=== PATIENT | male | born 1945 | race Caucasian/White ===

== ENCOUNTER 2019-02-02 14:08 | Inpatient (IN) | payer MEDICARE, OTHER ==
[~2019-02-02] VITALS: Ht 185.4 cm; Wt 81.0 kg
[2019-02-02] MEDS ORDERED: ISOS60TA36 PO (14:55)
[2019-02-02] MEDS ORDERED: LOSA25TA25 PO (14:55)
[2019-02-02] MEDS ORDERED: METO5TAB2 PO (14:55)
[2019-02-02] MEDS ORDERED: OMEP40CA6 PO (14:55)
[2019-02-02] MEDS ORDERED: INSU500V SQ (14:55)
[2019-02-02] MEDS ORDERED: ONDA4TAB13 SL (14:55)
--- NOTE | 2019-02-02 15:35 | NUR ---
pt in hospital gown, family at bedside. pt placed on monitors. pt able to use urinal to void. bilat bedrails up.
[2019-02-02 16:02] LABS: ALBUMIN 3.3 g/dL (3.4-5.0); ANION GAP 7 mmol/L (5-15); CALCIUM 8.3 mg/dL (8.5-10.1); CHLORIDE 122 mmol/L (98-107); CREATININE 4.21 mg/dL (0.7-1.3)
--- NOTE | 2019-02-02 16:40 | NUR ---
US BEING DONE AT BEDSIDE. PT HAS CALL LIGHT WITHIN REACH.
--- NOTE | 2019-02-02 17:02 | NUR ---
PT'S BLOOD SUGAR ON RECHECK 44, PT GIVEN FOOD AND JUICE. DR CUADRA NOTIFIED
[2019-02-02] MEDS ORDERED: DEXTROSE 50%, 50ML SYRINGE ONE (17:04)
--- NOTE | 2019-02-02 17:04 | NUR ---
REPORT TO RUDDY FLOYD
[2019-02-02] MEDS ORDERED: DEXTROSE 50%, 50ML SYRINGE IVPush ONE (17:30)
[2019-02-02] MEDS ORDERED: SODIUM BICARBONATE 8.4% 150 MEQ in DEXTROSE 5% 1,000 ML IV SCH (17:30)
--- NOTE | 2019-02-02 18:24 | NUR ---
PT MOVED FROM ROOM 28 TO 34. PT PLACED ON HOSPITAL BED
--- NOTE | 2019-02-02 18:25 | NUR ---
MIGUEL ÁNGEL HDZ (daughter) [phone]
[2019-02-02] MEDS ORDERED: SODIUM BICARBONATE 8.4% 100 MEQ in DEXTROSE 5% 1,000 ML IV SCH (18:30)
[2019-02-02] MEDS ORDERED: GABAPENTIN 300 MG CAPSULE PO PRN (18:30)
[2019-02-02] MEDS ORDERED: DEXTROSE 4 GM TAB.CHEW PO PRN (18:30)
[2019-02-02] MEDS ORDERED: DEXTROSE 50%, 50ML SYRINGE IVPush PRN (18:30)
[2019-02-02] MEDS ORDERED: DOCUSATE 100 MG CAPSULE PO PRN (18:30)
[2019-02-02] MEDS ORDERED: ACETAMINOPHEN 325 MG TABLET PO PRN (18:30)
[2019-02-02] MEDS ORDERED: ONDANSETRON ODT 4 MG PO PRN (18:30)
[2019-02-02] MEDS ORDERED: GLUCAGON 1 MG IM PRN (18:30)
[2019-02-02] MEDS ORDERED: PHARMACY MAY ADJ FOR RENAL FX MC PRN (18:30)
--- NOTE | 2019-02-02 18:31 | NUR ---
PT REFUSING [employer] CATHE[employer]. ULTRASOUND AT BEDSIDE
[2019-02-02 19:07] LABS: THYROID STIMULATING HORMONE 1.55 mIU/L (0.358-3.740)
[2019-02-02] MEDS ORDERED: FUROSEMIDE 100 MG/10 ML IV ONE (19:30)
[2019-02-02 20:07] LABS: HEMOGLOBIN A1C 4.8 % (4.2-6.3)
--- NOTE | 2019-02-02 20:37 | NUR ---
report given to yamileth
[2019-02-02] MEDS ORDERED: INSULIN REGULAR HUMAN SQ SCH (21:00)
[2019-02-02] MEDS: INSULIN LISPRO 100 UNITS/ML, PEN SQ-INSULIN SCH (22:05)
[2019-02-02] MEDS: METOCLOPRAMIDE 10MG TABLET PO SCH (22:35)
[2019-02-02] MEDS: HEPARIN 5,000 UNITS/ML, 1ML SQ SCH (22:38)
[2019-02-02] MEDS: SODIUM CHLORIDE FLUSH 10ML SYR IVF SCH (23:08)
[2019-02-02 23:11] LABS: ANION GAP 4 mmol/L (5-15); CALCIUM 8.2 mg/dL (8.5-10.1); CHLORIDE 119 mmol/L (98-107); CREATININE 4.15 mg/dL (0.7-1.3)
[2019-02-02 23:59] LABS: CULTURE INDICATED? NO; MICROSCOPIC AUTO
[2019-02-03] MEDS ORDERED: INSULIN REGULAR 100 UNITS/ML, 3ML VIAL IVPush ONE
[2019-02-03] MEDS ORDERED: CALCIUM GLUCONATE 0.46MEQ/1ML IVPush ONE
[2019-02-03] MEDS ORDERED: DEXTROSE 50%, 50ML SYRINGE IVPush ONE
[2019-02-03 00:09] LABS: CREATININE,URINE RANDOM 25.9 mg/dL
[2019-02-03 01:45] VITALS: BP 154/85
[2019-02-03] MEDS ORDERED: PROMETHAZINE 25 MG/ML, 1ML IM PRN (04:30)
[2019-02-03 05:16] LABS: MEAN CORPUSCULAR HEMOGLOBIN 32.4 pg (27.5-34.5); MEAN CORPUSCULAR HGB CONC 33.1 g/dL (33.2-36.2); MEAN CORPUSCULAR VOLUME 97.9 fL (81-97); MEAN PLATELET VOLUME 7.6 fL (7.4-10.4); PLATELET COUNT 271 x10^3/uL (130-400); RED CELL DISTRIBUTION WIDTH 14.2 % (9.4-14.8)
[2019-02-03 05:33] LABS: ANION GAP 6 mmol/L (5-15); CALCIUM 8.5 mg/dL (8.5-10.1); CHLORIDE 115 mmol/L (98-107)
[2019-02-03 05:35] LABS: CREATININE 4.15 mg/dL (0.7-1.3)
[2019-02-03 05:41] VITALS: BP 181/77
[2019-02-03 05:50] LABS: BASOPHILS % (AUTO) 0 % (0-1); EOSINOPHILS # (AUTO) 0.05 x10^3/uL (0-0.4); EOSINOPHILS % (AUTO) 1 % (1-7); LYMPHOCYTES # (AUTO) 1.03 x10^3/uL (1-3.4); LYMPHOCYTES % (AUTO) 13 % (22-44); MD MORPH REVIEW ONLY; MONOCYTES # (AUTO) 0.42 x10^3/uL (0.2-0.8); MONOCYTES % (AUTO) 5 % (2-9); NEUTROPHILS # (AUTO) 6.51 x10^3/uL (1.8-6.8); NEUTROPHILS % (AUTO) 81 % (42-75)
[2019-02-03 05:51] LABS: ANISOCYTOSIS 1+; ECHINOCYTES 1+; OVALOCYTES 1+
[2019-02-03 05:53] LABS: <PLATELET ESTIMATE> ADEQUATE; <PLT MORPHOLOGY> NORMAL PLT MORPH
[2019-02-03] MEDS: HEPARIN 5,000 UNITS/ML, 1ML SQ SCH ×3 (05:57→22:06)
[2019-02-03] MEDS ORDERED: OMEPRAZOLE 20 MG CAPSULE.DR PO SCH (06:00)
[2019-02-03] MEDS: INSULIN LISPRO 100 UNITS/ML, PEN SQ-INSULIN SCH ×4 (07:00→20:31)
[2019-02-03 07:09] VITALS: BP 186/91
[2019-02-03] MEDS: hydrALAzine 20 MG/ML, 1ML IVPush PRN (07:50)
[2019-02-03] MEDS: SUCRALFATE 1 GM TABLET PO SCH ×3 (07:51→16:10)
[2019-02-03] MEDS ORDERED: SODIUM POLYSTYRENE SULFONATE ORAL SUSP PO ONE ×2 (11:00)
[2019-02-03] MEDS: ISOSORBIDE MONONITRATE ER 60 MG TABLET PO SCH (11:35)
[2019-02-03] MEDS: INSULIN REGULAR 100 UNITS/ML, 3ML VIAL SQ-INSULIN SCH ×2 (11:41→18:12)
[2019-02-03] MEDS: METOCLOPRAMIDE 10MG TABLET PO SCH ×2 (11:43→21:36)
[2019-02-03] MEDS: SODIUM CHLORIDE FLUSH 10ML SYR IVF SCH ×2 (11:46→21:35)
[2019-02-03 13:35] VITALS: BP 148/70
[2019-02-03] MEDS: FUROSEMIDE 20 MG TABLET PO SCH (16:12)
[2019-02-03 16:50] LABS: ANION GAP 5 mmol/L (5-15); CALCIUM 8.1 mg/dL (8.5-10.1); CHLORIDE 114 mmol/L (98-107); CREATININE 4.11 mg/dL (0.7-1.3)
[2019-02-03 19:55] VITALS: BP 155/80
[2019-02-03] MEDS: SODIUM BICARBONATE 650 MG TABLET PO SCH (21:36)
[2019-02-04 03:59] VITALS: BP 174/88
[2019-02-04] MEDS: hydrALAzine 20 MG/ML, 1ML IVPush PRN ×2 (04:23→05:04)
[2019-02-04] MEDS: HEPARIN 5,000 UNITS/ML, 1ML SQ SCH (05:12)
[2019-02-04 06:04] LABS: ALBUMIN 3.3 g/dL (3.4-5.0); ANION GAP 6 mmol/L (5-15); CALCIUM 8.7 mg/dL (8.5-10.1); CHLORIDE 113 mmol/L (98-107); CREATININE 4.35 mg/dL (0.7-1.3); IRON LEVEL 130 mcg/dL (65-175)
[2019-02-04 06:09] LABS: TOTAL IRON BINDING CAPACITY 205 mcg/dL (250-450)
[2019-02-04 06:55] LABS: % IRON SATURATION 63 % (20-55)
[2019-02-04] MEDS ORDERED: OMEPRAZOLE 20 MG CAPSULE.DR PO SCH (07:30)
[2019-02-04 07:58] VITALS: BP 185/84
[2019-02-04] MEDS ORDERED: AMLODIPINE 5 MG TABLET PO SCH (09:00)
[2019-02-04] MEDS: SUCRALFATE 1 GM TABLET PO SCH ×2 (09:23→12:35)
[2019-02-04] MEDS: ISOSORBIDE MONONITRATE ER 60 MG TABLET PO SCH (09:23)
[2019-02-04] MEDS: METOCLOPRAMIDE 10MG TABLET PO SCH (09:23)
[2019-02-04] MEDS: SODIUM BICARBONATE 650 MG TABLET PO SCH (09:24)
[2019-02-04] MEDS: FUROSEMIDE 20 MG TABLET PO SCH (09:24)
[2019-02-04] MEDS: INSULIN LISPRO 100 UNITS/ML, PEN SQ-INSULIN SCH ×2 (09:28→11:55)
[2019-02-04] MEDS: INSULIN REGULAR 100 UNITS/ML, 3ML VIAL SQ-INSULIN SCH (09:29)
[2019-02-04] MEDS ORDERED: ARANESP 60 MCG/ML **ESRD SQ SCH (11:00)
[2019-02-04 13:50] VITALS: BP 173/92
[2019-02-05] MEDS ORDERED: CALCITRIOL 0.25 MCG CAPSULE PO SCH (09:00)
== END 2019-02-04 17:38 | disposition left against medical advice (07) | DRG 682 ==
LOC: ED 17:28 → EDIP 17:33 → ED 18:24 → 4WST 21:49
PROVIDERS: ADMIT Hospitalist; ATTEND Hospitalist
DX: N17.9 Acute kidney failure, unspecified (principal); I50.31 Acute diastolic (congestive) heart failure; E87.2 Acidosis; E87.0 Hyperosmolality and hypernatremia; I13.0 Hypertensive heart and chronic kidney disease with heart failure and stage 1 through stage 4 chronic kidney disease, or unspecified chronic kidney disease; N18.4 Chronic kidney disease, stage 4 (severe); D63.1 Anemia in chronic kidney disease; E11.21 Type 2 diabetes mellitus with diabetic nephropathy; E11.22 Type 2 diabetes mellitus with diabetic chronic kidney disease; E11.40 Type 2 diabetes mellitus with diabetic neuropathy, unspecified; E87.5 Hyperkalemia; E11.649 Type 2 diabetes mellitus with hypoglycemia without coma; F12.90 Cannabis use, unspecified, uncomplicated; Z66 Do not resuscitate; Z79.4 Long term (current) use of insulin; Z79.899 Other long term (current) drug therapy; Z82.49 Family history of ischemic heart disease and other diseases of the circulatory system; Z83.3 Family history of diabetes mellitus; Z87.891 Personal history of nicotine dependence; Z89.512 Acquired absence of left leg below knee; Z53.21 Procedure and treatment not carried out due to patient leaving prior to being seen by health care provider; T38.3X5A Adverse effect of insulin and oral hypoglycemic [antidiabetic] drugs, initial encounter; Y92.89 Other specified places as the place of occurrence of the external cause
CPT/HCPCS: 36415; 76770; 80048; 80069; 81001; 82040; 82306; 82436; 82570; 82607; 82728; 82947; 82962; 83036; 83540; 83550; 83735; 83970; 84100; 84133; 84155; 84156; 84165; 84166; 84300; 84443; 84466; 85025; 93005; 93970; 96374; G0378; J0610; J1644; J1815; J1940; J2550; J7070; Q0162; J0360